=== PATIENT | male | born 1970 | race Caucasian/White ===

== ENCOUNTER 2017-06-14 10:03 | Observation (INO) | payer BC ==
[2017-06-14] MEDS ORDERED: NS 0.9% 1000 ML* 1,000 ML IV ONE ×2 (10:21→14:26)
[2017-06-14 10:47] LABS: ABS Basophils 0.1 10^3/ul (0-0.2); ABS Eosinophils 0.2 10^3/ul (0-0.6); ABS Lymphocytes 1.3 10^3/ul (1.0-4.8); ABS Monocytes 0.5 10^3/ul (0-0.8); ABS Neutrophils 3.7 10^3/ul (1.5-7.7); ABS Nucleated RBC 0 10^3/ul; Eosinophil % 2.9 % (0-6); Hematocrit 42 % (42-52); Hemoglobin 14.4 g/dl (14.0-18.0); Mean Corpuscular HGB Conc 34 g/dl (31-36); Mean Corpuscular Hemoglobin 37 pg (27-31); Mean Platelet Volume 8 um3 (7.4-10.4); Nucleated Red Blood Cells % 0.1; Platelet Count 668 10^3/ul (150-450); Red Blood Count 3.91 10^6/ul (4.0-5.4); Red Cell Distribution Width 14 % (10.5-15); White Blood Count 5.8 10^3/ul (3.5-10.8)
[2017-06-14 10:48] LABS: Mean Corpuscular Volume 108 fL (80-94)
[2017-06-14 11:10] LABS: EGFR Non-African American 84.7 (>60)
[2017-06-14] MEDS ORDERED: Iohexol 350* (CONTRAST) 500 ML MDV IV ONE (11:43)
--- NOTE | 2017-06-14 12:07 | RAD ---
INDICATION: Mid back pain and "seizure-like activity" COMPARISON: None TECHNIQUE: Axial source images were acquired following the administration of 80 mL Omnipaque [address] angiographic technique. Coronal and sagittal reconstructed images were constructed and reviewed. FINDINGS: There there are no filling defects in the pulmonary arteries to indicate acute pulmonary embolic disease. There are hypoventilatory changes at the bilateral dependent lower lobes. The lungs are otherwise adequately aerated. The heart is normal in size. There is no evidence of pericardial effusion. There is no evidence of aortic aneurysm or dissection. There is no mediastinal, hilar, or axillary lymphadenopathy. Mild degenerative changes of the thoracic spine includes loss of intervertebral disc height. Limited views of the upper abdomen show no abnormalities. IMPRESSION: No CT of evidence of pulmonary embolism or other acute intrathoracic abnormality.
--- NOTE | 2017-06-14 12:15 | RAD ---
CPT II: CPT II Codes: 3100F INDICATION: Seizure and back pain COMPARISON: CT of the brain dated August 27, 2015 TECHNIQUE: A noncontrast CT of the brain was acquired with 5 mm slice thickness. A CT angiogram of the head and neck was performed with 100 cc of Omnipaque 350. Contiguous axial sections were obtained from the thoracic inlet through the [place]. Suboptimal bolus timing prevented creation of 3-D volume rendered reconstructions. The distal cervical internal carotid artery diameter is used as the denominater for stenosis measurement. NONCONTRAST CT OF THE BRAIN: The ventricles, sulci and cisterns are normal in size and symmetric. The carbajal-white matter differentiation is adequately maintained. There is no acute intracranial hemorrhage, mass or mass effect. CTA NECK: The common and internal carotid arteries are patent without hemodynamically significant stenosis. Right: Below the carotid bulb the common carotid artery measures 8 mm in diameter and the internal carotid artery measures 8 mm in short axis diameter and immediately beyond the bifurcation. This yields 0% degree stenosis Left: Below the carotid bulb the common carotid artery measures 9 mm in diameter and the internal carotid artery measures 9 mm in short axis diameter and immediately beyond the bifurcation. This yields 0% degree stenosis. The vertebral arteries are patent without gross abnormality. CTA of the brain: The internal carotid, anterior and middle cerebral arteries appear are patent without high grade stenosis or occlusion. The vertebral, basilar and posterior cerebral arteries appear patent without high grade stenosis or occlusion. The [place] is complete with bilateral posterior communicating arteries identified. No focal luminal filling defect, aneurysm or vascular malformation is seen. IMPRESSION: 1. No acute angiographic abnormalities of the head and neck on this suboptimal CTA of the head and neck. 2. No significant stenoses at the bilateral carotid arteries according to Ruben set criteria. 3. Normal-appearing brain.
[2017-06-14] MEDS ORDERED: Cyclobenzaprine TAB* 10 MG PO ONE (13:25)
--- NOTE | 2017-06-14 13:25 | ED ---
Yogesh Bean Tecjoon, scribed for Lavelle Romero MD on 06/14/17 at 1040 . Syncope/Near Syncope - HPI Summary HPI Summary: This patient is a 47 year old male BIBA to [facility] accompanied by with a chief complaint of seizure-like activity. EMS states that patient complained of severe back pain, starting suddenly on Thursday. Patient went into convulsions twice in the process of bringing him to ED, eyes rolled back in head and entire body stiffened for about 30 seconds and does not recall any memory of the episode. Patient states he felt an aura before episode occurred. Patient additionally reports diaphoresis. At time of exam, patient is bradycardic, at 58 BPM, but states he feels better and denies dizziness. - History Of Current Complaint Chief Complaint: EDDysrhythmPalp Hx Obtained From: Patient Onset/Duration: Sudden Onset Timing: Intermittent Episode Lasting - 30 seconds Context: Witnessed, Loss Of Consciousness Associated Head Trauma: No Aggravating Factor(s): Nothing Alleviating Factor(s): Nothing Associated Signs And Symptoms: Negative - dizziness s/p, Other - syncope, diaphoresis - Allergies/Home Medications Allergies/Adverse Reactions: Allergies Allergy/AdvReac Type Severity Reaction Status Date / Time No Known Drug Allergy Allergy Unknown Verified 06/14/17 10:26 Reaction Details Home Medications: Home Medications Aspirin EC Low Dose* [Ecotrin EC Low Dose 81 MG*] 81 mg PO DAILY 06/14/17 [ History Confirmed 06/14/17] HydroxyUREA CAP* [Hydrea CAP*] 1,000 mg PO EVERY OTHER DAY 06/14/17 [History Confirmed 06/14/17] PMH/Surg Hx/FS Hx/Imm Hx Previously Healthy: Yes Endocrine/Hematology History: Denies: Hx Diabetes Cardiovascular History: Denies: Hx Hypertension, Hx Pacemaker/ICD Respiratory History: Denies: Hx Asthma History: Denies: Hx Renal Disease Sensory History: Denies: Hx Hearing Aid Psychiatric History: Denies: Hx Panic Disorder Infectious Disease History: No Infectious Disease History: Denies: Traveled Outside the [place] in Last 30 Days - Family History Known Family History: Negative: Seizure Disorder - Social History Occupation: Employed Full-time Lives: With Family Alcohol Use: Rare Hx Substance Use: No Substance Use Type: Reports: None Hx Tobacco Use: Yes Smoking Status (MU): Former Smoker Review of Systems Positive: Skin Diaphoresis. Negative: Fever Positive: Other - back pain Neurological: Negative - dizziness s/p Positive: Syncope All Other Systems Reviewed And Are Negative: Yes Physical Exam - Summary Physical Exam Summary: VITAL SIGNS: Reviewed. GENERAL: Patient is a well-developed and nourished male who is lying in stretcher, looking pale. Patient is not in any acute respiratory distress. HEAD AND FACE: No signs of trauma. No ecchymosis, hematomas or skull depressions. No sinus tenderness. EYES: PERRLA, EOMI x 2, No injected conjunctiva, no nystagmus. EARS: Hearing grossly intact. Ear canals and tympanic membranes are within normal limits. MOUTH: Oropharynx within normal limits. NECK: Supple, trachea is midline, no adenopathy, no JVD, no carotid bruit, no c- spine tenderness, neck with full ROM. CHEST: Symmetric, no tenderness at palpation LUNGS: Clear to auscultation bilaterally. No wheezing or crackles. CVS: Heart rate was 29 when we entered, 58 when we left. Patient has no carotid bruits and good carotid pulses. ABDOMEN: Soft, non-tender. No signs of distention. No rebound no guarding, and no masses palpated. Bowel sounds are normal. EXTREMITIES: FROM in all major joints, no edema, no cyanosis or clubbing. NEURO: Alert and oriented x 3. No acute neurological deficits. Speech is normal and follows commands. SKIN: Diaphoretic and clammy. Triage Information Reviewed: Yes Vital Signs On Initial Exam: Initial Vitals Temp Pulse Resp BP Pulse Ox 97.3 F 58 15 109/72 95 06/14/17 10:14 06/14/17 10:14 06/14/17 10:14 06/14/17 10:14 06/14/17 10:14 Vital Signs Reviewed: Yes - Cecy Coma Scale Coma Scale Total: 15 Diagnostics - Vital Signs Vital Signs Temp Pulse Resp BP Pulse Ox 06/14/17 10:31 65 95 06/14/17 10:30 109/75 06/14/17 10:25 95 06/14/17 10:14 97.3 F 58 15 109/72 95 - Laboratory Lab Results: Lab Results 06/14/17 06/14/17 06/14/17 Range/Units 10:23 10:23 10:23 WBC (3.5-10.8) 10^3/ul RBC (4.0-5.4) 10^6/ul Hgb (14.0-18.0) g/dl Hct (42-52) % MCV (80-94) fL MCH (27-31) pg MCHC (31-36) g/dl RDW (10.5-15) % Plt Count (150-450) 10^3/ul MPV (7.4-10.4) um3 Neut % (Auto) (38-83) % Lymph % (Auto) (25-47) % [place] % (Auto) (1-9) % Eos % (Auto) (0-6) % Baso % (Auto) (0-2) % Absolute Neuts (auto) (1.5-7.7) 10^3/ul Absolute Lymphs (auto) (1.0-4.8) 10^3/ul Absolute Monos (auto) (0-0.8) 10^3/ul Absolute Eos (auto) (0-0.6) 10^3/ul Absolute Basos (auto) (0-0.2) 10^3/ul Absolute Nucleated RBC 10^3/ul Nucleated RBC % ESR (0-14) mm/Hr INR (Anticoag Therapy) 1.00 (0.77-1.02) APTT 23.7 L (26.0-36.3) seconds D-Dimer, Quantitative < 200 (Less Than 230) ng/mL Sodium 140 (133-145) mmol/L Potassium 3.8 (3.5-5.0) mmol/L Chloride 109 (101-111) mmol/L Carbon Dioxide 24 (22-32) mmol/L Anion Gap 7 (2-11) mmol/L BUN 15 (6-24) mg/dL Creatinine 0.96 (0.67-1.17) mg/dL Est GFR ( Amer) 108.9 (>60) Est GFR (Non-Af Amer) 84.7 (>60) BUN/Creatinine Ratio 15.6 (8-20) Glucose 119 H (70-100) mg/dL Lactic Acid (0.5-2.0) mmol/L Calcium 8.8 (8.6-10.3) mg/dL Magnesium 1.9 (1.9-2.7) mg/dL Total Bilirubin 0.40 (0.2-1.0) mg/dL AST 18 (13-39) U/L ALT 16 (7-52) U/L Alkaline Phosphatase 49 (34-104) U/L Total Creatine Kinase 92 (10-223) U/L CK-MB (CK-2) 1.5 (0.6-6.3) ng/mL Myoglobin 13.2 L (17.4-105.7) ng/mL Troponin I 0.00 (<0.04) ng/mL B-Natriuretic Peptide 17 ( - 100) pg/mL Total Protein 6.2 L (6.4-8.9) g/dL Albumin 4.0 (3.2-5.2) g/dL Globulin 2.2 (2-4) g/dL Albumin/Globulin Ratio 1.8 (1-3) TSH 1.52 (0.34-5.60) mcIU/mL Thyroxine (T4) 5.99 L (6.09-12.23) mcg/mL Blood Type Antibody Screen 06/14/17 06/14/17 06/14/17 Range/Units 10:23 10:23 10:23 WBC 5.8 (3.5-10.8) 10^3/ul RBC 3.91 L (4.0-5.4) 10^6/ul Hgb 14.4 (14.0-18.0) g/dl Hct 42 (42-52) % MCV 108 H (80-94) fL MCH 37 H (27-31) pg MCHC 34 (31-36) g/dl RDW 14 (10.5-15) % Plt Count 668 H (150-450) 10^3/ul MPV 8 (7.4-10.4) um3 Neut % (Auto) 64.2 (38-83) % Lymph % (Auto) 23.0 L (25-47) % [place] % (Auto) 8.9 (1-9) % Eos % (Auto) 2.9 (0-6) % Baso % (Auto) 1.0 (0-2) % Absolute Neuts (auto) 3.7 (1.5-7.7) 10^3/ul Absolute Lymphs (auto) 1.3 (1.0-4.8) 10^3/ul Absolute Monos (auto) 0.5 (0-0.8) 10^3/ul Absolute Eos (auto) 0.2 (0-0.6) 10^3/ul Absolute Basos (auto) 0.1 (0-0.2) 10^3/ul Absolute Nucleated RBC 0 10^3/ul Nucleated RBC % 0.1 ESR 7 (0-14) mm/Hr INR (Anticoag Therapy) (0.77-1.02) APTT (26.0-36.3) seconds D-Dimer, Quantitative (Less Than 230) ng/mL Sodium (133-145) mmol/L Potassium (3.5-5.0) mmol/L Chloride (101-111) mmol/L Carbon Dioxide (22-32) mmol/L Anion Gap (2-11) mmol/L BUN (6-24) mg/dL Creatinine (0.67-1.17) mg/dL Est GFR ( Amer) (>60) Est GFR (Non-Af Amer) (>60) BUN/Creatinine Ratio (8-20) Glucose (70-100) mg/dL Lactic Acid 2.5 H* (0.5-2.0) mmol/L Calcium (8.6-10.3) mg/dL Magnesium (1.9-2.7) mg/dL Total Bilirubin (0.2-1.0) mg/dL AST (13-39) U/L ALT (7-52) U/L Alkaline Phosphatase (34-104) U/L Total Creatine Kinase (10-223) U/L CK-MB (CK-2) (0.6-6.3) ng/mL Myoglobin (17.4-105.7) ng/mL Troponin I (<0.04) ng/mL B-Natriuretic Peptide ( - 100) pg/mL Total Protein (6.4-8.9) g/dL Albumin (3.2-5.2) g/dL Globulin (2-4) g/dL Albumin/Globulin Ratio (1-3) TSH (0.34-5.60) mcIU/mL Thyroxine (T4) (6.09-12.23) mcg/mL Blood Type A Negative Antibody Screen Negative Result Diagrams: 06/14/17 10:23 06/14/17 10:23 Lab Statement: Any lab studies that have been ordered have been reviewed, and results considered in the medical decision making process. - CT CT Head CT Interpretation: No Acute Changes - IMPRESSION: 1. No acute angiographic abnormalities of the head and neck on this suboptimal CTA of the head and neck. 2. No significant stenoses at the bilateral carotid arteries according to Ruben set criteria. 3. Normal-appearing brain. ED physician has reviewed this radiology report. CT Interpretation Completed By: Radiologist CT Chest CT Interpretation: No Acute Changes - IMPRESSION: No CT of evidence of pulmonary embolism or other acute intrathoracic abnormality. ED physician has reviewed this radiology report. CT Interpretation Completed By: Radiologist - EKG 1016 Cardiac Rate: Bradycardia EKG Rhythm: Sinus Bradycardia - 58 BPM EKG Interpretation: sinus bradycardia, t-wave inversion in NABF Re-Evaluation - Re-Evaluation First Eval Re-Evaluation Time: 11:45 Change: Improved Comment: Patient is feeling much better. He states no complaints at this time. Course/Dx Course Of Treatment: This patient is a 47 year old male BIBA to [facility] accompanied by with a chief complaint of seizure-like activity. EMS states that patient complained of severe back pain, starting suddenly on Thursday. Patient went into convulsions twice in the process of bringing him to ED, eyes rolled back in head and entire body stiffened for about 30 seconds and does not recall any memory of the episode. Patient states he felt an aura before episode occurred. Patient additionally reports diaphoresis. At time of exam, patient is bradycardic, at 58 BPM, but states he feels better and denies dizziness. An EKG taken 1016, reveals sinus bradycardia (58 BPM), t-wave inversion in NABF. CT Head reveals, per radiologist, IMPRESSION: 1. No acute angiographic abnormalities of the head and neck on this suboptimal CTA of the head and neck. 2. No significant stenoses at the bilateral carotid arteries according to Ruben set criteria. 3. Normal-appearing brain. ED physician has reviewed this radiology report. CT Chest reveals, per radiologist, IMPRESSION: No CT of evidence of pulmonary embolism or other acute intrathoracic abnormality. ED physician has reviewed this radiology report. Bloodwork Obtained. Urinalysis Obtained. In the ED course the patient was given Iohexol. During re-eval at 1145, Patient states he is feeling much better. He states no complaints at this time. At this time is uncleared symptoms Syncope vs Seizure , however patient had a symptomatic bardycardia. She had a pause for aproximately 6-7 sec. We discussed patient care with Dr. Devine (Hospitalist) at 1218 and they agreed to accept the patient. Patient will be diagnosed with seizure vs syncope and symptomatic bradycardia and will be admitted. The patient is agreeable with this plan. - Diagnoses Differential Diagnosis/HQI/PQRI: Positive: Cerebral Vascular Accident, Dysrhythmia, Hypoglycemia, Metabolic Reaction, Myocardial Infarction, Seizure, Transient Ischemic Attack, Vasovagal Episode Provider Diagnoses: seizure versus syncope, Symptomatic bradycardia - Physician Notifications Discussed Care of Patient With: Mackenzie Devine - Hospitalist Time Discussed With Above Provider: 12:18 - We discussed patient care with Dr. Devine (Hospitalist) at 1218 and they agreed to accept the patient. Discharge - Discharge Plan Condition: Stable Disposition: ADMITTED TO [facility] Referrals: Eduardo Bearden, SIGN INSTALLER [Primary Care Provider] - The documentation as recorded by the Yogesh bill Tecjoon accurately reflects the service I personally performed and the decisions made by , Laevlle Romero MD.
[2017-06-14] MEDS ORDERED: Ondansetron INJ* 2 MG/ML VIAL IV PRN (14:17)
[2017-06-14] MEDS ORDERED: Acetaminophen TAB* 325 MG PO PRN (14:17)
[2017-06-14] MEDS: oxyCODONE/Acetamin 5/325 MG* TAB PO PRN ×2 (14:59→22:36)
[2017-06-14] MEDS ORDERED: HydroxyUREA CAP* 500 MG CAP PO SCH (16:14)
[2017-06-14] MEDS: Ketorolac TAB * 10 MG TAB PO PRN (16:39)
[2017-06-14] MEDS: Aspirin EC Low Dose* 81 MG TAB.EC PO SCH (16:40)
[2017-06-14 17:18] LABS: Urine Appearance Clear; Urine Blood Negative (Negative); Urine Color Yellow; Urine Ketones Negative (Negative); Urine Protein Negative (Negative); Urine Specific Gravity 1.051 (1.010-1.030); Urine Urobilinogen Negative (Negative)
[2017-06-14] MEDS: Cyclobenzaprine TAB* 10 MG PO PRN (19:53)
--- NOTE | 2017-06-14 23:28 | HP ---
HOSPITAL MEDICINE HISTORY AND PHYSICAL: DATE OF ADMISSION: 06/14/17 PRIMARY CARE PHYSICIAN: Eduardo Bearden NP ATTENDING PHYSICIAN: Mackenzie Devine DO * (dictation provided by Yue Lockhart NP ) CHIEF COMPLAINT: Back pain with syncope. HISTORY OF PRESENT ILLNESS: Mr. Paul Armijo is a 47-year-old male with a past medical history of chronic upper back pain and essential thrombocythemia with CALR mutation who presents today to the hospital with concern for severe back pain and syncope. Mr. Armijo states that he first had upper back pain about 20 years ago after he had some sort of strain while working. He has this pain usually about once per year when the weather gets very cold. On Thursday, he again began experiencing this upper back pain, which is described as a tight sharp pain. He notes that usually the pain last a day or so, but this episode seemed to last longer and to be more severe in its intensity. He was able to sleep well last night, but when he awoke this morning he was having severe pain in the middle of his back. He got up to go to the bathroom but by the time he reached the door, he fell to the floor due to the severity of the pain. His asked if he should go to the hospital and he said he was not sure. Shortly thereafter, he started to make a loud sound and the observed him to have his eyes rolled back in his head and to be making some grunting sounds. He then passed out. She called emergency medical services. Before EMS arrived , the patient did wake up. He was able to speak appropriately. He did seem confused about what had happened but was mentating appropriately. On arrival of EMS, the patient was able to walk down the stairs to get on the stretcher, but once on the stretcher he began to feel the pain coming back and said "I am going to pass out" and then again had an episode where he was noted to have some convulsive syncope with eyes rolling back and some stiffening of his body before passing out. The patient was brought to the hospital. In the emergency room, Mr. Armijo had another episode while lying in the bed where he started to feel pain coming on again and felt that he was going to pass out. 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 The patient did not completely pass out at that point. His workup is essentially unremarkable except for a slightly elevated lactic acid at 2.5. His vitals are stable other than during the period of pain when he was bradycardic. Mr. Armijo reports that multiple members of his family "pass out." He reports that his mother has , but his father and all of his siblings have frequent episodes of passing out. They have had episodes related to needlesticks, etc. The patient reports having only 1 episode that he can remember of passing out in the past, although there has been times when he felt he was going to pass out but did not actually lose consciousness. The patient has a history of essential thrombocythemia and is followed by Dr. Serg Mckeon who is a factory focus technician in [place]. The patient reports having a CALR mutation and being on aspirin and hydroxyurea for this indication. PAST MEDICAL HISTORY: 1. CALR mutation with essential thrombocythemia, follows Dr. Mckeon. 2. History of CVA in August 2015. MEDICATIONS: 1. Aspirin 81 mg p.o. q. day. 2. Hydroxyurea 1000 mg p.o. alternating with 500mg p.o. every other day. ALLERGIES: No known drug allergies. FAMILY HISTORY: The patient reports multiple members of the family have frequent episodes of what is described as vasovagal syncope. His mother from ovarian cancer. Dad is still alive. SOCIAL HISTORY: No report of alcohol, tobacco, or drug use. He lives with his , his healthcare proxy. REVIEW OF SYSTEMS: A 14-point review of systems was completed with Mr. Armijo and all those not mentioned above were negative. PHYSICAL EXAMINATION GENERAL: Mr. Armijo is lying in the bed. He is in no acute distress other than appearing uncomfortable and stiff and not wanting to move because of back pain. VITAL SIGNS: Temperature 97.3, pulse rate 62, respiratory rate 18, O2 saturation 100% on room air, blood pressure 121/81. LUNGS: Clear to auscultation bilaterally with no accessory muscle use and good aeration. HEART: S1, S2. No murmur, rub, or gallop and regular. ABDOMEN: Soft, nontender with bowel sounds positive x4. EXTREMITIES: No cyanosis or edema. NEURO: He is alert, he is oriented x3. He moves all extremities equally. There is no facial asymmetry or focal weakness. Extraocular movements are intact. SKIN: Intact. LABORATORY DATA/DIAGNOSTIC STUDIES: Sodium 140, potassium 3.8, chloride 109, serum bicarbonate 24, BUN 15, creatinine 0.96, glucose 119. Lactic acid 2.5. Troponin 0.00. When repeated at 1:42, it was 0.00. WBC 5.8, hemoglobin 14.4, hematocrit 42, platelet count 668. INR 1.00. D-dimer less than 200. Chest/Thorax CTA is read as follows: "No CTA evidence of pulmonary embolism or other acute intrathoracic abnormality." Head CTA is read as follows: "No acute angiographic abnormalities of the head and neck on the suboptimal CTA of the head and neck. No significant stenoses at the bilateral carotid arteries according to NASCET criteria, normal appearing brain." EKG shows a sinus bradycardia with a heart rate of about almost 60. He has T-wave inversions in III and aVF only. It is not significantly different from previous, although the aVF T-wave inversion is more apparent. ASSESSMENT: Mr. Armijo is a 47-year-old male with a past medical history of CALR mutation with thrombocythemia and stroke history in 2016 as well as chronic back pain who presents to the hospital with concern for back pain and syncopal episodes. Our plan is for observation in the hospital for the followin. Syncopal episodes: Patient is having vasovagal syncope related to back pain. The patient and his were very concerned that the patient had seizure -like activity prior to passing out. I have explained to them that this activity is called convulsive syncope and is not indicative of a seizure. They are also concerned about his bradycardia in the emergency room and I have explained to them that bradycardia is a mechanism through which patients pass out when they have vasovagal syncope. The patient reports strong family history of syncope. The patient will be monitored on the telemetry unit. CTA brain was negative. I do not think any further workup is indicated. 2. Back pain: The patient's back pain is severe enough that it is causing him to syncopize repeatedly. I have given him Flexeril x1 in the emergency room and he is able to move around very minimally in the bed at least to facilitate transfer to the floor. Plan to add on Toradol, morphine, oxycodone, and additional Flexeril as well as Tylenol for pain control in hopes that he can get up and move around and to be comfortable enough to prevent these syncopal episodes. 3. Code status is full code. 4. DVT prophylaxis with SCDs. 5. History of thrombocythemia, baseline. Continue home medications. TIME SPENT: Approximately 60 minutes was spent on the admission of this patient , more than half of the time was spent with the patient at the bedside reviewing the events leading up to this hospitalization, performing the physical examination, and reviewing my plan of care. YUE LOCKHART, KEVYN [id number]/CPS #: [id number] ROBERTA
[2017-06-15] MEDS: Ketorolac TAB * 10 MG TAB PO PRN (03:28)
[2017-06-15] MEDS: oxyCODONE/Acetamin 5/325 MG* TAB PO PRN (06:58)
[2017-06-15] MEDS ORDERED: Aspirin EC Low Dose* 81 MG TAB.EC PO SCH (09:00)
--- NOTE | 2017-06-15 09:35 | PN ---
Subjective Date of Service: 06/15/17 Interval History: states that he is feeling better today, muscle tightness in back is improved, c /o mild pain with deep breath. Denies nausea, vomiting, diarrhea or abd pain. Denies any chest pain or shortness of breath. Family History: Unchanged from Admission Social History: Unchanged from Admission Past Medical History: Unchanged from Admission Objective Active Medications: Acetaminophen (Tylenol Tab*) 650 mg PO Q6H PRN PRN Reason: PAIN Last Admin: 06/14/17 19:54 Dose: 650 mg Aspirin (Aspirin Ec Low Dose*) 81 mg PO DAILY KYUNG Last Admin: 06/14/17 16:40 Dose: 81 mg Cyclobenzaprine HCl (Flexeril Tab*) 5 mg PO BID PRN PRN Reason: muscle spasm Last Admin: 06/14/17 19:53 Dose: 5 mg Hydroxyurea (Hydrea Cap*) 1,000 mg PO EVERY OTHER DAY KYUNG Hydroxyurea (Hydrea Cap*) 500 mg PO EVERY OTHER DAY KYUNG Last Admin: 06/14/17 16:39 Dose: 500 mg Ketorolac Tromethamine (Toradol Tab *) 10 mg PO Q6H PRN PRN Reason: PAIN Last Admin: 06/15/17 03:28 Dose: 10 mg Ondansetron HCl (Zofran Inj*) 4 mg IV Q6H PRN PRN Reason: NAUSEA Oxycodone/Acetaminophen (Percocet 5/325 Tab*) 1 tab PO Q4H PRN PRN Reason: PAIN Last Admin: 06/15/17 06:58 Dose: 1 tab Vital Signs - 8 hr 06/15/17 06/15/17 06/15/17 03:33 04:25 06:58 Temperature 98.5 F Pulse Rate 51 Respiratory 16 16 16 Rate Blood Pressure 106/64 (mmHg) O2 Sat by Pulse 98 Oximetry 06/15/17 08:01 Temperature 97.4 F Pulse Rate 46 Respiratory 16 Rate Blood Pressure 115/71 (mmHg) O2 Sat by Pulse 99 Oximetry Oxygen Devices in Use Now: None Appearance: alert sitting in bed, appears comfortable Eyes: No Scleral Icterus Ears/Nose/Mouth/Throat: Clear Oropharnyx, Mucous Membranes Moist Neck: NL Appearance and Movements; NL JVP, Trachea Midline Respiratory: Symmetrical Chest Expansion and Respiratory Effort, Clear to Auscultation Cardiovascular: NL Sounds; No Murmurs; No JVD, RRR, No Edema Abdominal: NL Sounds; No Tenderness; No Distention Extremities: No Edema Skin: No Rash or Ulcers Neurological: Alert and Oriented x 3, NL Gait, NL Muscle Strength and Tone Nutrition: Taking PO's Result Diagrams: 06/14/17 10:23 06/14/17 10:23 Additional Lab and Data: Lab Results 06/14/17 06/14/17 06/14/17 Range/Units 10:23 10:23 10:23 WBC (3.5-10.8) 10^3/ul RBC (4.0-5.4) 10^6/ul Hgb (14.0-18.0) g/dl Hct (42-52) % MCV (80-94) fL MCH (27-31) pg MCHC (31-36) g/dl RDW (10.5-15) % Plt Count (150-450) 10^3/ul MPV (7.4-10.4) um3 Neut % (Auto) (38-83) % Lymph % (Auto) (25-47) % [place] % (Auto) (1-9) % Eos % (Auto) (0-6) % Baso % (Auto) (0-2) % Absolute Neuts (auto) (1.5-7.7) 10^3/ul Absolute Lymphs (auto) (1.0-4.8) 10^3/ul Absolute Monos (auto) (0-0.8) 10^3/ul Absolute Eos (auto) (0-0.6) 10^3/ul Absolute Basos (auto) (0-0.2) 10^3/ul Absolute Nucleated RBC 10^3/ul Nucleated RBC % ESR (0-14) mm/Hr INR (Anticoag Therapy) 1.00 (0.77-1.02) APTT 23.7 L (26.0-36.3) seconds D-Dimer, Quantitative < 200 (Less Than 230) ng/mL Sodium 140 (133-145) mmol/L Potassium 3.8 (3.5-5.0) mmol/L Chloride 109 (101-111) mmol/L Carbon Dioxide 24 (22-32) mmol/L Anion Gap 7 (2-11) mmol/L BUN 15 (6-24) mg/dL Creatinine 0.96 (0.67-1.17) mg/dL Est GFR ( Amer) 108.9 (>60) Est GFR (Non-Af Amer) 84.7 (>60) BUN/Creatinine Ratio 15.6 (8-20) Glucose 119 H (70-100) mg/dL Lactic Acid (0.5-2.0) mmol/L Calcium 8.8 (8.6-10.3) mg/dL Magnesium 1.9 (1.9-2.7) mg/dL Total Bilirubin 0.40 (0.2-1.0) mg/dL AST 18 (13-39) U/L ALT 16 (7-52) U/L Alkaline Phosphatase 49 (34-104) U/L Total Creatine Kinase 92 (10-223) U/L CK-MB (CK-2) 1.5 (0.6-6.3) ng/mL Myoglobin 13.2 L (17.4-105.7) ng/mL Troponin I 0.00 (<0.04) ng/mL B-Natriuretic Peptide 17 ( - 100) pg/mL Total Protein 6.2 L (6.4-8.9) g/dL Albumin 4.0 (3.2-5.2) g/dL Globulin 2.2 (2-4) g/dL Albumin/Globulin Ratio 1.8 (1-3) TSH 1.52 (0.34-5.60) mcIU/mL Thyroxine (T4) 5.99 L (6.09-12.23) mcg/mL Blood Type Antibody Screen 06/14/17 06/14/17 06/14/17 Range/Units 10:23 10:23 10:23 WBC 5.8 (3.5-10.8) 10^3/ul RBC 3.91 L (4.0-5.4) 10^6/ul Hgb 14.4 (14.0-18.0) g/dl Hct 42 (42-52) % MCV 108 H (80-94) fL MCH 37 H (27-31) pg MCHC 34 (31-36) g/dl RDW 14 (10.5-15) % Plt Count 668 H (150-450) 10^3/ul MPV 8 (7.4-10.4) um3 Neut % (Auto) 64.2 (38-83) % Lymph % (Auto) 23.0 L (25-47) % [place] % (Auto) 8.9 (1-9) % Eos % (Auto) 2.9 (0-6) % Baso % (Auto) 1.0 (0-2) % Absolute Neuts (auto) 3.7 (1.5-7.7) 10^3/ul Absolute Lymphs (auto) 1.3 (1.0-4.8) 10^3/ul Absolute Monos (auto) 0.5 (0-0.8) 10^3/ul Absolute Eos (auto) 0.2 (0-0.6) 10^3/ul Absolute Basos (auto) 0.1 (0-0.2) 10^3/ul Absolute Nucleated RBC 0 10^3/ul Nucleated RBC % 0.1 ESR 7 (0-14) mm/Hr INR (Anticoag Therapy) (0.77-1.02) APTT (26.0-36.3) seconds D-Dimer, Quantitative (Less Than 230) ng/mL Sodium (133-145) mmol/L Potassium (3.5-5.0) mmol/L Chloride (101-111) mmol/L Carbon Dioxide (22-32) mmol/L Anion Gap (2-11) mmol/L BUN (6-24) mg/dL Creatinine (0.67-1.17) mg/dL Est GFR ( Amer) (>60) Est GFR (Non-Af Amer) (>60) BUN/Creatinine Ratio (8-20) Glucose (70-100) mg/dL Lactic Acid 2.5 H* (0.5-2.0) mmol/L Calcium (8.6-10.3) mg/dL Magnesium (1.9-2.7) mg/dL Total Bilirubin (0.2-1.0) mg/dL AST (13-39) U/L ALT (7-52) U/L Alkaline Phosphatase (34-104) U/L Total Creatine Kinase (10-223) U/L CK-MB (CK-2) (0.6-6.3) ng/mL Myoglobin (17.4-105.7) ng/mL Troponin I (<0.04) ng/mL B-Natriuretic Peptide ( - 100) pg/mL Total Protein (6.4-8.9) g/dL Albumin (3.2-5.2) g/dL Globulin (2-4) g/dL Albumin/Globulin Ratio (1-3) TSH (0.34-5.60) mcIU/mL Thyroxine (T4) (6.09-12.23) mcg/mL Blood Type A Negative Antibody Screen Negative Assess/Plan/Problems-Billing Assessment: - Patient Problems (1) Back pain Status: Acute Code(s): M54.9 - DORSALGIA, UNSPECIFIED SNOMED Code(s): 067889683 Comment: vasovagal episodes d/t back pain flexeril as needed for muscle pain for home oxycodone as needed for pain for home (2) Syncopal episodes Status: Acute Code(s): R55 - SYNCOPE AND COLLAPSE SNOMED Code(s): 481703112 Comment: r/t back pain continue to control back pain (3) History of CVA (cerebrovascular accident) without residual deficits Status: Acute (4) Thrombocythemia Status: Acute Comment: continue on Aspirin continue hydroxurea (5) DVT prophylaxis Status: Acute Code(s): ODW9756 - SNOMED Code(s): 500395457 Comment: ambulate ad jerrod (6) Full code status Status: Acute Code(s): Z78.9 - OTHER SPECIFIED HEALTH STATUS SNOMED Code(s) : 754580694 Status and Disposition: Discharge home.
[2017-06-15] MEDS ORDERED: HydroxyUREA CAP* 500 MG CAP PO SCH (11:49)
[2017-06-15] MEDS: Aspirin EC Low Dose* 81 MG TAB.EC PO SCH (12:34)
[2017-06-15] MEDS: Cyclobenzaprine TAB* 10 MG PO PRN (12:37)
[2017-06-15 12:43] VITALS: BP 130/72
--- NOTE | 2017-06-16 00:11 | DS ---
CC: Eduardo Bearden NP; Mohit Mckeon MD * DISCHARGE SUMMARY: DATE OF ADMISSION: 06/14/17 DATE OF DISCHARGE: 06/15/17 PROVIDER: Renae Mckeon NP ATTENDING PHYSICIAN: Dr. Mackenzie Devine * (dictated by Renae Mckeon NP). PRIMARY CARE PROVIDER: Eduardo Bearden NP PRIMARY DIAGNOSES: 1. Back pain. 2. Syncopal episodes, suspect vasovagal syncope. SECONDARY DIAGNOSES: 1. CALR mutation with essential thrombocythemia, follows with Dr. Mckeon. 2. History of cerebrovascular accident in August of 2015. STUDIES WHILE IN THE HOSPITAL: CTA of the chest and thorax, radiologist's impression: No evidence of pulmonary embolism or other acute intrathoracic abnormality. CTA of the head, radiologist's impression: 1. No acute angiographic abnormalities of the head or neck on the suboptimal CTA of the head and neck. 2. No significant stenosis at the bilateral carotid arteries according to NASCET criteria. 3. Normal appearing brain. Electrocardiogram showed sinus bradycardia, rate of 58, flat Ts in lead II and lead III and aVF. DISCHARGE MEDICATIONS: New home medications are: 1. Oxycodone 5/325 one tablet every 6 hours as needed for pain, maximum daily dose of 4. 2. Flexeril 5 mg p.o. q.8 hours as needed for muscle spasms. Continued home medications: 1. Hydroxyurea capsule 1000 mg p.o. every other day alternating with hydroxyurea cap 500 mg p.o. every other day. 2. Enteric-coated aspirin 81 mg. HISTORY OF PRESENT ILLNESS/HOSPITAL COURSE: Mr. Armijo is a 47-year-old male that presented to the emergency room with a past medical history significant for CALR mutation with essential thrombocythemia, history of a CVA. He presented with severe upper back pain and syncope. Mr. Armijo states that at first his upper back pain started approximately 20 years ago after some sort of strain while working. He gets this type of pain once or twice a year and when the weather gets very cold. On Thursday, he started experiencing upper back pain. He describes as tight and sharp pain. He notes that usually the pain lasts a day or so and this episode seemed to be lasting longer and more severe intensity. He got up to go to the bathroom and at that time he reached for the door, he fell to the floor due to the severity of pain. Shortly after that, he started making grunting sounds and then he passed out. His called emergency medical services and he arrived via EMS. Before EMS got there, he is awake, alert, and spoke appropriately. He did seem a bit confused. On EMS arrival, the patient was able to walk down the stairs and get on the stretcher, but once on the stretcher, he began feel the pain coming back in his back and said "I am going to pass out" and again he had an episode where he did some convulsive syncope and his eyes rolled back on his head and some stiffening of his body before passing out. The patient was brought to the hospital for further evaluation. While in the emergency room, Mr. Armijo had another episode while lying on the stretcher. He started to feel pain coming back and said that he was going to pass out. The monitoring analyst at the time and his heart rate was noted to fall into the 30s. The patient did not completely pass out at that point. Workup is essentially unremarkable except for a slight elevated lactic acid of 2.5. His vitals are stable other than during the period when he was bradycardic. He received a CTA of the brain and CTA of the chest, which were negative. EKG showed sinus bradycardia at a rate of 58. Mr. Armijo was placed on telemetry overnight and monitored. He continued to have sinus bradycardia in the 50s to 60s. He denied any other issues. Denied any nausea, vomiting, or diarrhea. Denied any shortness of breath or chest pain. He does report that he does get a little bit of upper back pain with deep breath, but it is much improved. The patient states that he is able to reach his arms forward today without having significant amount of pain. He received oxycodone and Flexeril during his hospital stay, which have seemed to help with control his pain. He has been up and ambulating in the room without any difficulty. At this time, Mr. Armijo feels he is ready for discharge. Mr. Armijo is stable for discharge home today. Vital signs are as follows: Temperature is 98.9, heart rate was 54, respirations 16, O2 saturation was 97% on room air, blood pressure is 130/72. DISCHARGE PLAN: Mr. Armijo will be discharged home with his . Activities as tolerated. He can resume a regular diet. In regards to his upper back pain , I recommended that he use Flexeril as needed. He can also use heat and ice to that area of pain. I have also prescribed him oxycodone 5/325, he can take one tablet every 6 hours as needed for pain. I have previewed his history of narcotic use. There are no references in [facility]. [facility] reference number is [id number]. I have instructed Mr. Armijo to follow up with his primary care provider in the next 4 to 7 days and also told to follow up with his neurologist in [place] as scheduled. He has requested that the lab work be sent to his neurologist in [place] and a record release was obtained. I would recommend if deemed appropriate that he followup with his primary care physician and have an echo as an outpatient and also an EEG if deemed necessary to rule out any seizure activity. The patient was also advised to return to the emergency room with any further episodes or increased upper back pain. This is a summary of report of the hospital stay for further details. Please see the entire medical record. TIME SPENT: On this discharge was approximately 60 minutes; greater than half the time was spent with the patient discussing discharge plans and instructions. CONDITION ON DISCHARGE: Stable. RENAE MCKEON NP [id number]/CPS #: [id number] ROBERTA
[2017-06-16] MEDS ORDERED: HydroxyUREA CAP* 500 MG CAP PO SCH ×2 (09:00→16:14)
== END 2017-06-15 15:40 | disposition home or self-care (01) ==
LOC: ED 10:03 → MEDTELE 12:44
PROVIDERS: ADMIT Hospitalist; ATTEND Hospitalist
DX: M54.6 Pain in thoracic spine (principal); R55 Syncope and collapse; D69.6 Thrombocytopenia, unspecified; Z86.73 Personal history of transient ischemic attack (TIA), and cerebral infarction without residual deficits; Z87.891 Personal history of nicotine dependence; R00.1 Bradycardia, unspecified
CPT/HCPCS: 36415; 70496; 70498; 71275; 80053; 81003; 82550; 82553; 83605; 83735; 83874; 83880; 84436; 84443; 84484; 85025; 85379; 85610; 85652; 85730; 86850; 86900; 86901; 93005; 99285; A9270-GY; G0378; Q9967

== ENCOUNTER 2017-08-18 08:17 | Emergency (ER) | payer SELFPAY ==
--- NOTE | 2017-08-18 10:07 | RAD ---
Indication: Sudden onset medial posterior LEFT calf pain while pushing a car stuck in snow. Comparison: No relevant prior exams available on the [facility] for comparison. Technique: Ultrasound of the LEFT calf corresponding with the region of pain. Report: Normal sonographic echotexture of the lateral and medial heads of the gastrocnemius as well as the subjacent soleus muscle without visualized muscle strain or maco tear. No loculated hematoma evident. Plantaris tendon visualized between the medial head of the gastrocnemius and the soleus. IMPRESSION: No sonographic evidence for significant muscle strain, maco muscle tear, or soft tissue hematoma to correspond with the region of clinical concern.
[2017-08-18 11:22] VITALS: BP 124/74
--- NOTE | 2017-08-18 15:54 | ED ---
Griselda Bean Thomas, scribed for Lavelle Romero MD on 08/18/17 at 0842 . Complex/Multi-Sys Presentation - HPI Summary HPI Summary: The patient is a 47 year old male who presents to the emergency room. Today at 07:30, the patient was pushing his car when he felt 3-4 pops in the calf of his left lower extremity and had sudden-onset calf pain. After this, the patient became dizzy and had a syncopal episode. In the emergency department, the pain is rated 4/10. - History Of Current Complaint Chief Complaint: EDSyncope Time Seen by Provider: 08/18/17 08:36 Hx Obtained From: Patient Onset/Duration: Lasting Hours, Still Present Timing: Constant Severity Initially: Moderate Location: Pain At: - left calf Aggravating Factor(s): Palpation Alleviating Factor(s): None Associated Signs And Symptoms: Positive: Other - Syncope, calf pain, dizziness - Allergies/Home Medications Allergies/Adverse Reactions: Allergies Allergy/AdvReac Type Severity Reaction Status Date / Time No Known Allergies Allergy Verified 08/18/17 08:35 PMH/Surg Hx/FS Hx/Imm Hx Endocrine/Hematology History: Denies: Hx Diabetes Cardiovascular History: Denies: Hx Hypertension, Hx Pacemaker/ICD Respiratory History: Denies: Hx Asthma History: Denies: Hx Renal Disease Sensory History: Denies: Hx Contacts or Glasses, Hx Hearing Aid Opthamlomology History: Denies: Hx Contacts or Glasses Psychiatric History: Denies: Hx Panic Disorder Infectious Disease History: No Infectious Disease History: Denies: Traveled Outside the [place] in Last 30 Days - Family History Known Family History: Negative: Seizure Disorder - Social History Alcohol Use: Occasionally Alcohol Amount: "i had a few drinks last night" Hx Substance Use: No Substance Use Type: Reports: None Hx Tobacco Use: Yes Smoking Status (MU): Former Smoker Review of Systems Negative: Fever Positive: Other - left calf pain Neurological: Other - Dizziness Positive: Syncope All Other Systems Reviewed And Are Negative: Yes Physical Exam - Summary Physical Exam Summary: VITAL SIGNS: Reviewed. GENERAL: Patient is a well-developed and nourished male who is lying comfortable in the stretcher. Patient is not in any acute respiratory distress. HEAD AND FACE: No signs of trauma. No ecchymosis, hematomas or skull depressions. No sinus tenderness. EYES: PERRLA, EOMI x 2, No injected conjunctiva, no nystagmus. EARS: Hearing grossly intact. Ear canals and tympanic membranes are within normal limits. MOUTH: Oropharynx within normal limits. NECK: Supple, trachea is midline, no adenopathy, no JVD, no carotid bruit, no c- spine tenderness, neck with full ROM. CHEST: Symmetric, no tenderness at palpation LUNGS: Clear to auscultation bilaterally. No wheezing or crackles. CVS: Regular rate and rhythm, S1 and S2 present, no murmurs or gallops appreciated. ABDOMEN: Soft, non-tender. No signs of distention. No rebound no guarding, and no masses palpated. Bowel sounds are normal. EXTREMITIES: He is tender to the left calf. FROM in all major joints, no edema, no cyanosis or clubbing. NEURO: Alert and oriented x 3. No acute neurological deficits. Speech is normal and follows commands. SKIN: Dry and warm Triage Information Reviewed: Yes Vital Signs On Initial Exam: Initial Vitals Temp Pulse Resp BP Pulse Ox 97.5 F 60 18 130/92 96 08/18/17 08:19 08/18/17 08:19 08/18/17 08:19 08/18/17 08:19 08/18/17 08:19 Vital Signs Reviewed: Yes Diagnostics - Vital Signs Vital Signs Temp Pulse Resp BP Pulse Ox 08/18/17 08:19 97.5 F 60 18 130/92 96 - Laboratory Lab Statement: Any lab studies that have been ordered have been reviewed, and results considered in the medical decision making process. - Additional Comments Diagnostic Additional Comments: Ultrasound Soft Tissue LLE. Interpreted by radiologist. IMPRESSION: No sonographic evidence for significant muscle strain, maco muscle tear, or soft tissue hematoma to correspond with the region of clinical concern. Dr. Romero has reviewed this report. Complex Multi-Symp Course/Dx Assessment/Plan: The patient is a 47 year old male who presents to the emergency room. Today at 07:30, the patient was pushing his car when he felt 3- 4 pops in the calf of his left lower extremity and had sudden-onset calf pain. After this, the patient became dizzy and had a syncopal episode. In the emergency department, the pain is rated 4/10. Ultrasound soft tissue shows No sonographic evidence for significant muscle strain, maco muscle tear, or soft tissue hematoma to correspond with the region of clinical concern. At this point, I did not see any gastrocnemius muscle rupture. Therefore, I believe that this is actually bruising. Therefore, the patient was given instructions for OTC pain medication, ice, and rest. The patient was also instructed that if his symptoms worsen, he should return for further workup and management. - Diagnoses Differential Diagnoses/HQI/PQRI: Other - Muscular tear, sprain, strain Provider Diagnoses: Calf pain Discharge - Discharge Plan Condition: Stable Disposition: HOME Patient Education Materials: Leg Pain (ED) Referrals: Eduardo Bearden NP [Primary Care Provider] - 3 Days Additional Instructions: Follow up with your primary care physician in three days. Return to the emergency department for any new or worsening symptoms. The documentation as recorded by the Griselda bill Thomas accurately reflects the service I personally performed and the decisions made by me, Lavelle Romero MD.
== END 2017-08-18 11:21 | disposition home or self-care (01) ==
LOC: ED 08:17
DX: M79.662 Pain in left lower leg (principal); R55 Syncope and collapse; R42 Dizziness and giddiness; Z87.891 Personal history of nicotine dependence
CPT/HCPCS: 99282